=== PATIENT | male | born 1965 | race Caucasian/White ===

== ENCOUNTER 2022-04-18 12:19 | Emergency (ER) | payer SELFPAY ==
[~2022-04-18] VITALS: Ht 182.9 cm; Wt 90.9 kg
[~2022-04-18 12:19] MED LIST: CATAPRES PATCH; DARVOCET-N-101 UDTAB PO; FLEXERIL10 MG PO; KEPPRA500 MG PO; KLONOPIN 0.5MG0.5 MG PO; KLONOPIN 1MG1 MG PO; LORTAB 5/500 501 TAB PO; MOTRIN 800800 MG/TAB PO; NAPROSYN PO; NO HOME MEDICATIONS; OXYCONTIN40 MG PO; PEPCID 20MG TAB20 MG PO; PERCOCET 325 MG1 TA2 PO; PERCOCET 325 MG1 TAB PO; PERCOCET 5/321 UDTAB PO; PHENERGAN 25 TA25 MG PO; PHENERGAN25 MG RC; SEROQUEL300 MG PO; VALIUM5 MG PO; VICODIN 5/5001 UDTAB PO
[2022-04-18 12:26] VITALS: TEMP 98.2
[2022-04-18 15:06] VITALS: BP 1338/85; PULSE 67
== END 2022-04-18 15:06 | disposition home or self-care (01) ==
LOC: COL.ER 12:19
DX: S30.0XXA Contusion of lower back and pelvis, initial encounter (principal); S20.229A Contusion of unspecified back wall of thorax, initial encounter; F17.210 Nicotine dependence, cigarettes, uncomplicated; Z88.6 Allergy status to analgesic agent; Z28.310 Unvaccinated for COVID-19; W10.9XXA Fall (on) (from) unspecified stairs and steps, initial encounter; W22.8XXA Striking against or struck by other objects, initial encounter; Y92.009 Unspecified place in unspecified non-institutional (private) residence as the place of occurrence of the external cause
CPT/HCPCS: J1885; J2270